=== PATIENT | female | born 1975 | race Two or more races ===

== ENCOUNTER 2019-03-15 15:41 | Emergency (ER) | payer MEDICAID ==
[~2019-03-15] VITALS: Ht 162.6 cm; Wt 86.2 kg
[2019-03-15 16:59] LABS: Basophils # (auto) 0.1 uL; Eosinophils # (auto) 0.3 uL; Monocytes # (auto) 0.7 uL
[2019-03-15 17:02] LABS: Basophils % (auto) 0.6 % (0.0-2.0); Eosinophils % (auto) 2.4 % (0.0-7.0); Hematocrit 37.7 % (36.0-46.0); Lymphocytes # (auto) 3.1 uL; Lymphocytes % (auto) 29.5 % (10.0-50.0); Mean Corpuscular Hemoglobin 22.8 pg (28.0-32.0); Mean Corpuscular Hgb Conc. 31.8 g/dL (32.0-36.0); Mean Corpuscular Volume 71.9 fL (80.0-100.0); Monocytes % (auto) 6.2 % (0.0-12.0); Neutrophils # (auto) 6.5 uL; Neutrophils % (auto) 61.3 % (37.0-80.0); Platelet Count (auto) 473 10^3/uL (140-450); Red Blood Cells 5.25 10^6/uL (4.0-5.20); Red Cell Distribution Width 16.3 % (11.8-14.3); White Blood Cell 10.5 10^3/uL (4.4-10.8)
[2019-03-15 17:14] LABS: Alanine Aminotransferase 50 U/L (13-56); Albumin 3.7 g/dL (3.4-5.0); Anion Gap 7 (5-15); Aspartate Aminotransferase 20 U/L (15-37); BUN/Creatinine Ratio 15.6; Blood Urea Nitrogen 12 mg/dL (7-18); Calcium 9.1 mg/dL (8.5-10.1); Carbon Dioxide 26 mmol/L (21-32); Chloride 106 mmol/L (98-107); GFR African American 105 mL/min; GFR Non-African American 87 mL/min; Glucose 86 mg/dL (74-106); Potassium 3.8 mmol/L (3.5-5.1); Sodium 139 mmol/L (136-145)
[2019-03-15 17:17] LABS: INR < 0.93 (0.9-1.15); Partial Thromboplastin Time 24.5 sec (23.64-32.05)
[2019-03-15 17:21] LABS: Alkaline Phosphatase 139 U/L (45-117); Bilirubin, Total 0.2 mg/dL (0.2-1.0); Total Protein 7.9 g/dL (6.4-8.2)
[2019-03-15] MEDS ORDERED: IOHEXOL 350 MG/ML 100ML IJ ONE (19:50)
[2019-03-15 21:00] VITALS: BP 164/98
== END 2019-03-15 21:51 | disposition home or self-care (01) ==
LOC: ER 15:41
DX: R07.89 Other chest pain (principal); F43.9 Reaction to severe stress, unspecified; Z90.49 Acquired absence of other specified parts of digestive tract
CPT/HCPCS: 36415; 71045; 71275; 80053; 81025; 83880; 84484; 85025; 85379; 85610; 85730; 93005; 94761; 99284; Q9967

== ENCOUNTER 2022-06-04 18:52 | Emergency (ER) | payer MEDICAID, OTHER ==
[~2022-06-04] VITALS: Ht 165.1 cm; Wt 84.0 kg
[2022-06-04 23:05] VITALS: BP 140/91
[2022-06-04] MEDS ORDERED: IBUPROFEN 800 MG TAB PO ONE (23:45)
== END 2022-06-05 00:49 | disposition home or self-care (01) ==
LOC: ER 18:52
DX: S60.222A Contusion of left hand, initial encounter (principal); M54.50 Low back pain, unspecified; Z90.49 Acquired absence of other specified parts of digestive tract; V79.9XXA Bus occupant (driver) (passenger) injured in unspecified traffic accident, initial encounter; Y93.89 Activity, other specified; Y92.89 Other specified places as the place of occurrence of the external cause; Y99.8 Other external cause status
CPT/HCPCS: 73130

== ENCOUNTER 2024-01-01 13:36 | Emergency (ER) | payer OTHER ==
[~2024-01-01] VITALS: Ht 165.1 cm; Wt 88.5 kg
[2024-01-01 14:57] VITALS: BP 130/88; PULSE 80; RESP 16; TEMP 97.8; O2SAT 96
[2024-01-01] MEDS ORDERED: ACET-1080 PO (15:23)
== END 2024-01-01 15:29 | disposition home or self-care (01) ==
LOC: ER 13:44
DX: S63.591A Other specified sprain of right wrist, initial encounter (principal); F41.9 Anxiety disorder, unspecified; F32.9 Major depressive disorder, single episode, unspecified; Z98.890 Other specified postprocedural states; W01.198A Fall on same level from slipping, tripping and stumbling with subsequent striking against other object, initial encounter; Y93.89 Activity, other specified; Y92.89 Other specified places as the place of occurrence of the external cause; Y99.0 Civilian activity done for income or pay
CPT/HCPCS: 29125; 73110